=== PATIENT | female | born 1975 | race Caucasian/White ===

== ENCOUNTER 2018-01-16 18:59 | Emergency (ER) | payer OTHER ==
[~2018-01-16] VITALS: Ht 162.6 cm; Wt 88.5 kg
[2018-01-16 19:04] VITALS: BP 149/104
[2018-01-16] MEDS ORDERED: PROAIR HFA8.5 GM (19:08)
[2018-01-16] MEDS ORDERED: TESSALON PERLE100 MG PO (19:19)
[2018-01-16] MEDS ORDERED: ZPAK PO (19:19)
[2018-01-16] MEDS ORDERED: PROMETHAZINE V473 ML PO (19:19)
[2018-01-16] MEDS ORDERED: PREDNISONE 5 MG5 MG PO (19:20)
== END 2018-01-16 19:36 | disposition home or self-care (01) ==
LOC: M.ERS 18:59
DX: J20.9 Acute bronchitis, unspecified (principal); E11.9 Type 2 diabetes mellitus without complications; I10 Essential (primary) hypertension; Z98.890 Other specified postprocedural states; Z88.1 Allergy status to other antibiotic agents